=== PATIENT | female | born 2000 | race Hispanic/Latino ===

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

== ENCOUNTER 2019-12-21 18:31 | Emergency (ER) | payer OTHER, SELFPAY | END 2019-12-21 19:48 | disposition home or self-care (01) | LOC: ERS 18:31 | DX: Z03.818 Encounter for observation for suspected exposure to other biological agents ruled out (principal); E78.5 Hyperlipidemia, unspecified; E28.2 Polycystic ovarian syndrome; E78.00 Pure hypercholesterolemia, unspecified | CPT/HCPCS: 99283 ==

== ENCOUNTER 2021-10-06 19:50 | Emergency (ER) | payer OTHER, SELFPAY ==
[~2021-10-06 19:50] MED LIST: Iopamidol 370 76% 100 ML VIAL ONE
[2021-10-06 20:27] LABS: #Lymphocytes 0.9 thou/uL (1.20-3.40); #Monocytes 0.4 thou/uL (0.11-0.59); #Neutrophils 5.7 thou/uL (1.40-6.50); %Basophils 0.2 % (0.0-1.0); %Eosinophils 0.6 % (0.0-10.0); %Lymphocytes 12.7 % (21.0-51.0); %Monocytes 5.1 % (0.0-10.0); %Neutrophils 81.3 % (42.0-75.0); Hemoglobin 13.3 g/dL (12.0-16.0); Mean Corpuscular HGB CONC 34.9 g/dL (32.0-36.0); Mean Corpuscular Hemoglobin 33.4 pg (27.0-31.0); Mean Corpuscular Volume 95.7 fL (78.0-98.0); Mean Platelet Volume 6.6 fL (7.4-10.4); Platelet Count 293 thou/uL (130-400); RBC Distribution Width 11.1 % (11.5-14.5); Red Blood Cell (RBC) Count 3.97 mill/uL (4.20-5.40)
[2021-10-06 20:49] LABS: ALT (SGPT) 35 U/L (8-55); AST (SGOT) 20 U/L (5-34); Albumin 4.6 g/dL (3.5-5.0); Alkaline Phosphatase 58 U/L (40-110); Anion Gap 15 mmol/L (10-20); BUN (Urea Nitrogen) 11 mg/dL (7.0-18.7); Bilirubin, Total 1.3 mg/dL (0.2-1.2); Calc. Creatinine Clearance 0 mL/min (70-130); Calcium 9.1 mg/dL (7.8-10.44); Carbon Dioxide 21 mmol/L (22-29); Chloride 102 mmol/L (98-107); Globulin 3.5 g/dL (2.4-3.5); Glucose 104 mg/dL (70-105); Potassium 3.5 mmol/L (3.5-5.1); Protein, Total 8.1 g/dL (6.0-8.3); Sodium 134 mmol/L (136-145)
[2021-10-06] MEDS ORDERED: Ketorolac Tromethamine 30 MG/ML VIAL ONE (21:40)
[2021-10-06] MEDS ORDERED: Acetaminophen 500 MG TAB ONE (21:40)
[2021-10-06] MEDS ORDERED: Ondansetron PF 4 MG/2 ML Vial ONE (21:43)
[2021-10-06 22:10] LABS: Bacteria/HPF None Seen HPF (None Seen); Bilirubin Negative (Negative); Blood, Urine 2+ (Negative); Clarity Clear (Clear); Glucose, Urine (Dipstick) Normal (Negative); Ketone, Urine Negative (Negative); Leukocyte Negative Leu/uL (Negative); Nitrite Negative (Negative); Pregnancy Test - Urine (BHCG) Negative (Negative); Pregu Control Background? CLEAR/WHITE (CLR/WHITE); Pregu Control Bar Appear? YES (CONTROL BAR); Protein, Urine (Dipstick) 30 mg/dL (Neg-Trace); Specific Gravity, Urine 1.039 (1.002-1.036); Urobilinogen Normal mg/dL (Less than 2); WBC/HPF 0-3 HPF (0-3)
[2021-10-06 22:11] LABS: Specific Gravity 1.039 (1.002-1.036)
[2021-10-07] MEDS ORDERED: diphenhydrAMINE 50 MG/ML VIAL ONE (00:53)
[2021-10-07] MEDS ORDERED: Metoclopramide HCl 10 MG/2 ML VIAL ONE (00:53)
[2021-10-07 11:29] LABS: SARS-CoV-2 PCR by NAA Not Detected (NotDetected)
== END 2021-10-07 00:13 | disposition home or self-care (01) ==
LOC: ERS 19:50
DX: R11.2 Nausea with vomiting, unspecified (principal); R19.7 Diarrhea, unspecified; E28.2 Polycystic ovarian syndrome; E78.5 Hyperlipidemia, unspecified; E78.00 Pure hypercholesterolemia, unspecified; Z20.822 Contact with and (suspected) exposure to COVID-19
CPT/HCPCS: 36415; 74177; 80053; 81003; 81015; 81025; 85025; 96374; 96375; J1200; J1885; J2405; J2765; Q9967; U0003; U0005

== ENCOUNTER 2023-08-27 00:10 | Emergency (ER) | payer SELFPAY ==
[2023-08-27 01:10] LABS: SARS-CoV-2 NAA Rapid Test DETECTED (NotDetected)
== END 2023-08-27 01:24 | disposition home or self-care (01) ==
LOC: ERS 00:10
DX: U07.1 COVID-19 (principal)
CPT/HCPCS: 99283